=== PATIENT | female | born 1970 | race Caucasian/White ===

== ENCOUNTER 2017-03-15 09:32 | Observation (INO) | payer OTHER ==
[2017-03-14 11:14] LABS: HEMOGLOBIN 11.1 g/dL (12.0-16.0)
[2017-03-14 11:15] LABS: HEMATOCRIT 33.6 % (36.0-48.0)
[2017-03-14 11:33] LABS: BUN (BLOOD UREA NITROGEN) 11 MG/DL (6-23); CALCIUM, SERUM 8.9 MG/DL (8.5-10.4); CHLORIDE, SERUM 109 MMOL/L (96-112); CO2 (CARBON DIOXIDE) 26 MMOL/L (24-34); CREATININE 0.67 MG/DL (0.55-1.02); GFR AFRICAN AMERICAN 121 ML/MIN (>=60); GFR NON AFRICAN AMERICAN 105 ML/MIN (>=60); GLUCOSE, SERUM 82 MG/DL (60-99); POTASSIUM, SERUM 4.3 MMOL/L (3.5-5.3); SODIUM, SERUM 141 MMOL/L (135-148)
--- NOTE | ~2017-03-15 | OP ---
Record Of Operation [facility] [address] [place]. [address] NAME: TALA ANDERSON : 70 STATUS : REG [facility] [place] PAT#: [id number] AGE: 47 ADM/REG DATE : 03/15/17 MR#: [id number] REPORT SERV DATE: 03/15/17 DICTATED BY: KRISH ROMERO DATE: 03/15/17 REPORT STATUS : Draft TRANSCRIBED BY: GAMALIEL DATE: 03/15/17 DATE OF PROCEDURE: 03/15/2017 PREOPERATIVE DIAGNOSIS: Cervical disk disease and stenosis C5-6 and C6-7. Intractable neck pain. POSTOPERATIVE DIAGNOSIS: Cervical disk disease and stenosis C5-6 and C6-7. Intractable neck pain. PROCEDURE: 1. Anterior cervical diskectomy and fusion, C5-6, C6-7. 2. Placement of Medtronic PEEK interbody spacer, C5-6, C6-7. 3. Allograft bone matrix. 4. Neuromonitoring. 5. Operative microscope. 6. Anterior cervical plate from Medtronic, C5-C7. ANESTHESIA: General. ESTIMATED BLOOD LOSS: 10 mL. COMPLICATIONS: None. INDICATIONS: The patient is a 47-year-old with intractable neck pain, failed conservative treatment. After discussion of risks and benefits, elected to undergo surgery. PROCEDURE IN DETAIL: I identified the patient in the holding area. Consent was obtained. Went to the operating room. Underwent general anesthesia with endotracheal intubation. Prepped and draped in the usual sterile fashion. Operative safety pause was performed, then we proceeded with surgery. A left-sided transverse incision was made in line with the skin crease. Platysma was incised and then dissection carried out down to the anterior aspect of the spine. Longus colli elevated C5-C7. Self-retaining retractors were placed. Bristol pin was placed in the C5 vertebral body and verified with lateral fluoroscopic image. An additional pin placed at C6. Distraction applied. Operative microscope was brought in. A knife was used to incise the C5-C6 disk space. Free disc material removed with a pituitary. Anterior osteophytes removed with Kerrison. Posterior osteophytes and uncinate processes taken down with a clemente bur. Foraminotomies performed with a Kerrison. Endplates were prepared with curettes, rasp, and a cutting bur. Trial spacers were implanted and then a Medtronic PEEK interbody spacer with allograft bone matrix placed at C5-C6. This was repeated at C6-C7. Bristol pins were removed. Anterior cervical plate from Medtronic was placed at C5-C7. Screws were placed, final tightened. Locking mechanisms engaged. Final AP and lateral fluoroscopic images obtained. Subplatysmal drain was placed. Layered closure performed. Sterile dressings applied. The patient was awoken and extubated and taken to the recovery room in stable condition. OPERATIVE FINDINGS: C5-7 disk disease and stenosis. No sustained neuromonitoring alerts. Record Of Operation [facility] [address] [facility] [place]. [address] NAME: TALA ANDERSON : 70 STATUS : REG [facility]#: [id number] AGE: 47 ADM/REG DATE : 03/15/17 MR#: [id number] REPORT SERV DATE: 03/15/17 DICTATED BY: KRISH ROMERO DATE: 03/15/17 REPORT STATUS : Draft TRANSCRIBED BY: GAMALIEL DATE: 03/15/17 KULWINDER/GAMALIEL Krish Romero DO / [id number] CC: DO SHONDA Moore
--- NOTE | ~2017-03-15 | PREOPHP ---
PreOp History and Physical [place] [address] [facility] [place]. [address] NAME: TALA ANDERSON : 70 STATUS : REG [facility]#: [id number] AGE: 47 ADM/REG DATE : 03/15/17 MR#: [id number] REPORT SERV DATE: 03/15/17 DICTATED BY: KRISH ROMERO DATE: 03/15/17 REPORT STATUS : Draft TRANSCRIBED BY: GAMALIEL DATE: 03/15/17 CHIEF COMPLAINT: Neck pain. HISTORY OF PRESENT ILLNESS: The patient is a pleasant 47-year-old with intractable neck pain, failed conservative treatment to include physical therapy, anti-inflammatory, and steroid injections. After discussion of risks and benefits, the patient elected to proceed with surgical intervention. REVIEW OF SYSTEMS: The patient denies chest pain, shortness of breath, and bowel or bladder changes. FAMILY HISTORY: Noncontributory. PAST MEDICAL HISTORY: Includes heart murmur, asthma, and hypertension. ALLERGIES: LATEX AND SULFA. HOME MEDICATIONS: Include metoprolol, omeprazole, Tylenol, and Zyrtec. PHYSICAL EXAMINATION: VITAL SIGNS: Height 5 feet 6 inches, weight 165, BMI 26.6. GENERAL: The patient is healthy appearing, in no acute distress. PSYCH: Alert and oriented x3. Normal mood and affect. Gait is within normal limits. SPINE: Decreased cervical motion. HEART: Regular rate and rhythm. LUNGS: Clear to auscultation. ABDOMEN: Soft, nontender, nondistended. Good bowel sounds. BREASTS AND RECTAL: Both deferred. NEUROLOGIC: Strength in the upper extremities remains intact. No focal deficits. IMAGING: I have reviewed the MRI scan. It does show C5-C7 disk disease and stenosis with spinal cord and nerve root compression. ASSESSMENT: C5-7 disk disease and stenosis, has failed conservative treatment. PLAN: The patient presents today for surgical intervention. Consent was obtained. All questions were answered, ready to proceed with surgery. KULWINDER/GAMALIEL Krish Romero DO / [id number] PreOp History and Physical [place] [address] [place]. [address] NAME: TALA ANDERSON : 70 STATUS : REG [facility] [place] PAT#: [id number] AGE: 47 ADM/REG DATE : 03/15/17 MR#: [id number] REPORT SERV DATE: 03/15/17 DICTATED BY: KRISH ROMERO DATE: 03/15/17 REPORT STATUS : Draft TRANSCRIBED BY: MODL DATE: 03/15/17 CC: Krish Romero, DO Joe Solano
[~2017-03-15 09:32] MED LIST: GAS-X80 MG PO; INHALER INH; MELATONIN5 M1 PO; PRILO PO; PROBIOTIC PO; TOPXL25 PO; XOPENEX HFA INH; ZYRTEC ALLGY10 MG PO; [UNRECOGNIZED DRUG - CODE] PO
[2017-03-16 07:35] LABS: POTASSIUM, SERUM 3.7 MMOL/L (3.5-5.3)
[2017-03-17] MEDS ORDERED: PR25 PO (11:23)
[2017-03-17] MEDS ORDERED: PCET PO (11:23)
[2017-03-17] MEDS ORDERED: FLEX PO (11:23)
== END 2017-03-17 16:08 | disposition home or self-care (01) ==
LOC: SDC 09:32 → 3SO 15:33
PROVIDERS: Orthopaedic Surgery
PROC: 0RG20A0 Fusion of 2 or more Cervical Vertebral Joints with Interbody Fusion Device, Anterior Approach, Anterior Column, Open Approach (ICD-10-PCS; principal; 2017-03-15 11:15)
PROC: 0RG20K0 Fusion of 2 or more Cervical Vertebral Joints with Nonautologous Tissue Substitute, Anterior Approach, Anterior Column, Open Approach (ICD-10-PCS; 2017-03-15 11:15)
DX: M50.322 Other cervical disc degeneration at C5-C6 level (principal); M50.323 Other cervical disc degeneration at C6-C7 level; I10 Essential (primary) hypertension; J45.909 Unspecified asthma, uncomplicated; M79.7 Fibromyalgia; K21.9 Gastro-esophageal reflux disease without esophagitis; K58.9 Irritable bowel syndrome, unspecified; Z87.891 Personal history of nicotine dependence; Z91.040 Latex allergy status; Z88.2 Allergy status to sulfonamides; Z91.030 Bee allergy status; Z90.89 Acquired absence of other organs; Z90.49 Acquired absence of other specified parts of digestive tract; Z79.899 Other long term (current) drug therapy; Z98.890 Other specified postprocedural states
CPT/HCPCS: 80048; 80051; 82962; 84703; 85014; 85018; 87641; 88304; 88311; 93005; 96374; 96375; 96376; 97116-GP; 97161-GP; A9270-GY; C1713; G0378; J0690; J2250; J2270; J2405; J2550; J2710; J3010